=== PATIENT | female | born 1975 | race Caucasian/White ===

== ENCOUNTER 2016-08-26 18:13 | Emergency (ER) | payer OTHER ==
[~2016-08-26] VITALS: Ht 160 cm; Wt 63.5 kg
[~2016-08-26 18:13] MED LIST: PRVHFAIN INH; SUMA100T16 PO
[2016-08-26 18:20] VITALS: Ht 160 cm; Wt 63.5 kg
[2016-08-26] MEDS ORDERED: SODIUM CHLORIDE 0.9% 1000ML 1,000 ML IV STA (18:36)
[2016-08-26] MEDS ORDERED: PROCHLORPERAZINE 5 MG/ML 2 ML VIAL IV STA (18:36)
[2016-08-26] MEDS ORDERED: KETOROLAC TROMETHAMINE 30 MG/ML VIAL IV STA (18:36)
[2016-08-26] MEDS ORDERED: DiphenhydrAMINE HCL 50 MG/ML VIAL IV STA (18:36)
--- NOTE | 2016-08-26 18:41 | EMERGENCY ROOM VISIT NOTE ---
History Report prepared by Gary: Kristen Haji Under the Supervision of: Dr. Sher Chase M.D. First contact with patient: 18:32 Chief Complaint: HEADACHE Stated Complaint: HEADACHE,VOMITING AND BLOOD IN URINE History of Present Illness The patient is a 41 year old female who presents to the Emergency Room with complaints of a persistent migraine headache that began around 1400 today. She currently rates her discomfort as a 10/10 in severity. The patient notes a history of migraines, but notes that last time she was in the emergency department for a headache was several years ago. She states that her headache started around 1400 today, but states that she felt fine earlier. The patient states that she notices the pain behind her right eye, and states that her headache is worsened with light. She states that today she was in the car and had to tap puller to vomit. The patient states that at the end of her vomiting, she noticed spots of blood. She states that she feels generally weak today, but denies any numbness or weakness to extremities. The patient denies any recent fall or trauma. She denies any fever. The patient states that stress most likely triggered her migraine today. She notes a history of a hemangioma on her liver, noting that she is followed closely for it. Source of History: patient Onset: 1400 today Position: head Symptom Intensity: 10/10 Timing: other (persistent) Modifying Factors (Worsening): other (light) Associated Symptoms: + nausea, No fevers Review of Systems See HPI for pertinent positives & negatives. A total of 10 systems reviewed and were otherwise negative. Past Medical & Surgical Medical Problems: (1) Hepatic hemangioma (2) Migraine Surgical Problems: (1) H/O shoulder surgery (2) H/O tubal ligation (3) S/P tonsillectomy (4) S/P tubal ligation Family History Diabetes mellitus FH: gallbladder disease FH: heart disease FH: lung disease Hypertension Social History Smoking Status: Former Smoker Alcohol Use: none Drug Use: none Marital Status: Housing Status: lives with family Occupation Status: employed Current/Historical Medications Scheduled PRN Albuterol Hfa (Ventolin Hfa), 2-4 PUFFS INH Q4H PRN for Shortness of Breath Ibuprofen (Advil), 200-600 MG PO Q4H PRN for Pain Sumatriptan Succinate (Imitrex), 100 MG PO UD PRN for Migraine Allergies Coded Allergies: No Known Allergies (Verified , 06/10/16) Uncoded Allergies: HAY FEVER (Allergy, Unknown, 08/12/02) Physical Exam Vital Signs Date Time Temp Pulse Resp B/P Pulse Ox O2 Delivery O2 Flow Rate FiO2 08/26/16 18:20 36.9 68 18 114/72 96 Room Air Physical Exam GENERAL: Patient is in no acute distress. HEENT: No acute trauma, normocephalic atraumatic, mucous membranes moist, no nasal congestion, no scleral icterus. Pupils equal and reactive to light. NECK: No stridor, no adenopathy, no meningismus, trachea is midline. LUNGS: Clear to auscultation bilaterally, no wheeze, no rhonchi, breath sounds equal. HEART: Without murmurs gallops or rubs, regular rate and rhythm. ABDOMEN: Soft, nontender, bowel sounds positive, no hernias, no peritonitis. EXTREMITIES: No cyanosis or edema, full range of motion of all the joints without pain or difficulty, no signs for acute trauma. NEUROLOGIC: Oriented x 3, no acute motor or sensory deficits, no focal weakness. No cerebellar deficits. SKIN: No rash, no jaundice, no diaphoresis Medical Decision & Procedures Medications Administered Medications (Trade) Dose Ordered Sig/Alex Route Start Time Stop Time Status Last Admin Dose Admin Sodium Chloride (Nss 1000ml) 1,000 ml @ 999 mls/hr Q1H1M STAT IV 08/26/16 18:36 08/26/16 19:36 DC 08/26/16 19:04 999 MLS/HR Ketorolac Tromethamine (Toradol Inj) 30 mg NOW STAT IV 08/26/16 18:36 08/26/16 18:39 DC 08/26/16 18:59 30 MG Prochlorperazine Edisylate (Compazine Inj) 10 mg NOW STAT IV 08/26/16 18:36 08/26/16 18:39 DC 08/26/16 18:59 10 MG Diphenhydramine HCl (Benadryl Inj) 50 mg NOW STAT IV 08/26/16 18:36 08/26/16 18:39 DC 08/26/16 19:00 50 MG Dexamethasone Sodium Phosphate (Decadron Inj) 10 mg NOW ONCE IV 08/26/16 18:45 08/26/16 18:46 DC 08/26/16 19:00 10 MG ED Course 183: The patient was evaluated in room B10. A complete history and physical exam was performed. 1835: Ordered Benadryl Inj 50 mg IV, Compazine Inj 10 mg IV, Toradol Inj 30 mg IV, Sodium Chloride 1000 ml @ 999 mls/hr IV. 1844: Ordered Decadron Inj 10 mg IV. 2005: I reevaluated the patient and she is feeling much better. I discussed all the exam findings with her and I discussed the treatment plan. She verbalized complete understanding and agreement. She is ready to go home. Medical Decision The patient is a 41 year old female who presents to the ED with complaints of a headache. Differential diagnoses considered include migraine headache, tension headache, head trauma, dehydration, meningitis, intracranial bleeding. The patient presents with a headache that she describes as a migraine. She has had previous similar headaches. On exam, she is not toxic or febrile. There are no focal neurologic deficits. She does not have meningismus. There has been no head trauma. The patient received IV Toradol, IV saline, IV Compazine and IV Benadryl. She was given IV Decadron. She feels markedly better. The patient is being discharged, she should rest and return if worsening. Her headache does sound migrainous. Impression Primary Impression: Headache Scribe Attestation The scribe's documentation has been prepared under my direction and personally reviewed by me in its entirety. I confirm that the note above accurately reflects all work, treatment, procedures, and medical decision making performed by me. Departure Information Dispostion Home / Self-Care Forms HOME CARE DOCUMENTATION FORM, IMPORTANT VISIT INFORMATION, Work Instructions Patient Instructions My [facility] Additional Instructions rest fluids return if worsening
[2016-08-26] MEDS ORDERED: DEXAMETHASONE SOD INJ 10 MG/ML VIAL IV ONE (18:45)
[2016-08-26] MEDS ORDERED: VNTHFA/IN INH (18:51)
[2016-08-26] MEDS ORDERED: IBUP-1050 PO (20:24)
[2016-08-26 20:52] VITALS: BP 116/74; PULSE 89; TEMP 36.9; O2SAT 100
== END 2016-08-26 20:52 | disposition home or self-care (01) ==
LOC: C.EDB 18:14
DX: G43.909 Migraine, unspecified, not intractable, without status migrainosus (principal); Z98.51 Tubal ligation status; Z87.891 Personal history of nicotine dependence; Z83.3 Family history of diabetes mellitus; Z82.49 Family history of ischemic heart disease and other diseases of the circulatory system